=== PATIENT | male | born 2000 | race Caucasian/White ===

== ENCOUNTER 2025-05-02 08:35 | Emergency (ER) | payer OTHER ==
[~2025-05-02] VITALS: Ht 175.3 cm; Wt 84.1 kg
[2025-05-02] MEDS: IBUPROFEN 600 MG TAB PO ONE (10:16)
[2025-05-02 10:46] VITALS: BP 147/78; TEMP 97.9; O2SAT 99
[2025-05-02] MEDS ORDERED: METH-1164 PO (11:39)
== END 2025-05-02 11:58 | disposition home or self-care (01) ==
LOC: EDBD 08:35 → M ED 08:35
DX: M62.838 Other muscle spasm (principal); V49.40XA Driver injured in collision with unspecified motor vehicles in traffic accident, initial encounter; F17.290 Nicotine dependence, other tobacco product, uncomplicated; Z91.030 Bee allergy status; Z91.013 Allergy to seafood; Z79.899 Other long term (current) drug therapy